=== PATIENT | female | born 1960 | race Caucasian/White ===

== ENCOUNTER → 2022-02-11 | Day surgery (SDC) | payer BC | END | disposition home or self-care (01) | LOC: BICULT 07:06 | PROVIDERS: ATTEND Student in an Organized Health Care Education/Training Program | DX: C50.811 Malignant neoplasm of overlapping sites of right female breast (principal); C77.3 Secondary and unspecified malignant neoplasm of axilla and upper limb lymph nodes | CPT/HCPCS: 19083; 38505; 88305; 88341; 88342 ==

== ENCOUNTER 2022-03-04 07:39 | Outpatient (CLI) | payer BC | END 2022-03-04 07:40 | disposition home or self-care (01) | LOC: CT 07:39 | PROVIDERS: ATTEND Surgery | DX: C50.911 Malignant neoplasm of unspecified site of right female breast (principal); R59.0 Localized enlarged lymph nodes; M48.8X6 Other specified spondylopathies, lumbar region | CPT/HCPCS: 71260; 74177; 78306; A9503 ==

== ENCOUNTER 2022-04-14 20:20 | Emergency (ER) | payer BC ==
[2022-04-14] MEDS ORDERED: Meclizine HCl 25 MG TAB ONE (23:21)
[2022-04-14] MEDS ORDERED: Ketorolac Tromethamine 30 MG/ML VIAL ONE (23:21)
[2022-04-14] MEDS ORDERED: diphenhydrAMINE 50 MG/ML VIAL ONE (23:21)
[2022-04-14] MEDS ORDERED: Prochlorperazine 10 MG/2 ML VIAL ONE (23:21)
[2022-04-14 23:38] LABS: #Eosinphils 0.2 thou/uL (0.0-0.7); #Monocytes 0.1 thou/uL (0.11-0.59); %Basophils 0.4 % (0.0-1.0); %Eosinophils 2.4 % (0.0-10.0); %Lymphocytes 15.9 % (21.0-51.0); %Monocytes 1.9 % (0.0-10.0); %Neutrophils 79.4 % (42.0-75.0); Hemoglobin 12.9 g/dL (12.0-16.0); Mean Corpuscular HGB CONC 32.5 g/dL (32.0-36.0); Mean Corpuscular Hemoglobin 29.9 pg (27.0-31.0); Mean Corpuscular Volume 91.8 fL (78.0-98.0); Mean Platelet Volume 8.6 fL (7.4-10.4); Platelet Count 153 thou/uL (130-400); RBC Distribution Width 13.3 % (11.5-14.5); Red Blood Cell (RBC) Count 4.31 mill/uL (4.20-5.40); White Blood Cell (WBC) Count 6.3 thou/uL (4.8-10.8)
[2022-04-15 00:13] LABS: ALT (SGPT) 49 U/L (8-55); AST (SGOT) 26 U/L (5-34); Alkaline Phosphatase 115 U/L (40-110); Anion Gap 13 mmol/L (10-20); BUN (Urea Nitrogen) 14 mg/dL (9.8-20.1); Bilirubin, Total 0.9 mg/dL (0.2-1.2); Calc. Creatinine Clearance 0 mL/min (70-130); Calcium 9.4 mg/dL (7.8-10.44); Carbon Dioxide 27 mmol/L (22-29); Chloride 99 mmol/L (98-107); Estimated GFR 101; Globulin 2.5 g/dL (2.4-3.5); Glucose 95 mg/dL (70-105); Potassium 3.5 mmol/L (3.5-5.1); Protein, Total 6.5 g/dL (6.0-8.3); Sodium 135 mmol/L (136-145)
[2022-04-15 00:57] LABS: Bacteria/HPF None Seen HPF (None Seen); Bilirubin Negative (Negative); Blood, Urine 2+ (Negative); Clarity Clear (Clear); Glucose, Urine (Dipstick) Normal (Negative); Ketone, Urine Negative (Negative); Leukocyte 250 Leu/uL (Negative); Mucous/LPF 1+ LPF (<2+); Nitrite Negative (Negative); Protein, Urine (Dipstick) 10 mg/dL (Neg-Trace); Squamous Epithelial 0-3 HPF (0-3); Urobilinogen Normal mg/dL (Less than 2); WBC/HPF 21-50 HPF (0-3); pH, Urine 5.5 (5.0-9.0)
== END 2022-04-15 00:47 | disposition home or self-care (01) ==
LOC: ERS 20:20
DX: R51.9 Headache, unspecified (principal); C50.919 Malignant neoplasm of unspecified site of unspecified female breast; R29.700 NIHSS score 0
CPT/HCPCS: 36415; 70450; 80053; 81003; 81015; 85025; 96374; 96375; J0780; J1200; J1885

== ENCOUNTER 2022-07-24 07:43 | Outpatient (CLI) | payer BC ==
[2022-07-24] MEDS ORDERED: Iopamidol 370 76% 100 ML VIAL ONE (10:39)
== END 2022-07-24 07:44 | disposition home or self-care (01) ==
LOC: CT 07:43
PROVIDERS: ATTEND Internal Medicine Hematology & Oncology
DX: C50.111 Malignant neoplasm of central portion of right female breast (principal)
CPT/HCPCS: 71260; 74177; 78306; A9503; Q9967

== ENCOUNTER 2023-01-06 08:28 | Outpatient (CLI) | payer BC ==
[2023-01-06] MEDS ORDERED: Iopamidol 370 76% 100 ML VIAL ONE (09:13)
== END 2023-01-06 08:29 | disposition home or self-care (01) ==
LOC: CT 08:28
PROVIDERS: ATTEND Internal Medicine Hematology & Oncology
DX: C50.111 Malignant neoplasm of central portion of right female breast (principal); R59.0 Localized enlarged lymph nodes; M53.84 Other specified dorsopathies, thoracic region; Z98.890 Other specified postprocedural states
CPT/HCPCS: 71260; 74177; 78306; 82565; A9503

== ENCOUNTER 2023-08-11 08:57 | Outpatient (CLI) | payer BC | END 2023-08-11 08:58 | disposition home or self-care (01) | LOC: NM 08:57 | PROVIDERS: ATTEND Internal Medicine Hematology & Oncology | DX: C50.111 Malignant neoplasm of central portion of right female breast (principal); M89.9 Disorder of bone, unspecified; R22.2 Localized swelling, mass and lump, trunk | CPT/HCPCS: 71260; 74177; 78306; 82565; A9503 ==